=== PATIENT | female | born 1960 | race Hispanic/Latino ===

== ENCOUNTER → 2018-09-12 | Outpatient (RCR) | payer BC | LOC: PT 09-06 16:47 | PROVIDERS: ATTEND Specialist | DX: M75.41 Impingement syndrome of right shoulder (principal); M25.511 Pain in right shoulder; M25.611 Stiffness of right shoulder, not elsewhere classified; M62.81 Muscle weakness (generalized) ==

== ENCOUNTER → 2019-11-06 | Day surgery (SDC) | payer BC, OTHER ==
[2019-11-02 14:59] LABS: BASOPHILS % 0.5 % (0.0-1.0); EOSINOPHILS # (AUTO) 0.1 (0.0-0.4); EOSINOPHILS % 1.3 % (0.0-6.0); HEMATOCRIT 42.7 % (34.2-44.1); HEMOGLOBIN 14.4 g/dL (12.0-16.0); LYMPHOCYTES # (AUTO) 3.2 (1.0-3.2); MEAN CORPUSCULAR HEMOGLOBIN 31.1 pg (28-32); MEAN CORPUSCULAR HGB CONC 33.7 g/dL (31-35); MEAN CORPUSCULAR VOLUME 92.2 fL (81-99); MONOCYTES # (AUTO) 0.7 (0.2-0.8); NEUTROPHILS # (AUTO) 4.4 (2.1-6.9); NEUTROPHILS % 51.8 % (38.7-80.0); PLATELET COUNT 224 x10e3/uL (140-360); RED BLOOD COUNT 4.63 x10e6/uL (3.6-5.1); RED CELL DISTRIBUTION WIDTH 13.2 % (11.7-14.4)
[2019-11-02 16:20] LABS: ALANINE AMINOTRANSFERASE 19 IU/L (0-55); ALBUMIN 3.7 g/dL (3.5-5.0); ALBUMIN/GLOBULIN RATIO 1.1 (0.8-2.0); ALKALINE PHOSPHATASE 94 IU/L (40-150); ANION GAP 11.7 mmol/L (8-16); BLOOD UREA NITROGEN 12 mg/dL (7-26); BUN/CREATININE RATIO 18 (6-25); CALCIUM 9.7 mg/dL (8.4-10.2); CARBON DIOXIDE 28 mmol/L (22-29); CHLORIDE 103 mmol/L (98-107); CREATININE, SERUM 0.67 mg/dL (0.57-1.11); EST GLOMERULAR FILTRATION RATE > 60 ML/MIN (60-); POTASSIUM 3.7 mmol/L (3.5-5.1); SODIUM 139 mmol/L (136-145)
[2019-11-02 17:12] LABS: GLUCOSE 131 mg/dL (74-118)
[~2019-11-06] MED LIST: ACETAMINOPHEN 1000 MG/100 ML IV ONE; ALENDRONATE SOD70 MG PO; BUPIVACAINE 0.25%/EPI 30ML SDV INJ ONE; CALCET TABLET1 EACH PO; DEXAMETHASONE SOD PHOS INJ 4 MG/ML VIAL ONE; FARXIGA10 MG PO; FENTANYL CITRATE/PF 100MCG/2 ML INJ ONE; HYDROMORPHONE 1MG/1ML INJ ONE; LIDOCAINE HCL 1% LOCAL INJ 20 ML VIAL ONE; LIPITOR10 MG PO; LISINOPRIL2.5 MG PO; METFORMIN HCL500 MG PO; MIDAZOLAM HCL 2 MG/2 ML VIAL ONE; OMEGA 3 1,0001 EACH PO; ONDANSETRON HCL INJ 2MG/ML 2ML 2 MG/ML VIAL ONE; PROPOFOL IV EMULSION 10 MG/ML 20 ML VIAL ONE; ROCURONIUM BROMIDE 10 MG/ML 5ML VIAL IV ONE; SEVOFLURANE INHAL SOLN 250 ML PEN BTL ONE; TRULICITY1.5 MG/0.5 INJ; XYZAL5 MG PO
--- NOTE | 2019-11-06 14:32 | Operative Report ---
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 OPERATION PERFORMED: Left partial mastectomy with preoperative ultrasound-guided needle localization and intraoperative specimen mammography. DELI ASSOCIATE: JOSELUIS Laird. ANESTHESIA: General. COMPLICATIONS: None. ESTIMATED BLOOD LOSS: Minimal. DESCRIPTION OF PROCEDURE: With the patient lying in bed in the supine position under good general anesthesia, after having undergone a needle localization of the area in question, the upper inner quadrant of the left breast, the left breast was prepped and draped in the usual manner. The area around the wire was then infiltrated with 0.25% Marcaine with epinephrine. An incision was made and carried down through the subcutaneous tissue. The wire was identified in the subcutaneous tissue and the breast tissue, and then followed to the area in question. The area in question was then slowly and completely excised. There was a secondary area of some calcifications, which were included in the specimen. The specimen was then sent for specimen mammography, which confirmed the area in question was totally and completely removed. The whole area was then thoroughly irrigated. Perfect hemostasis was ascertained. The specimen was sent for pathology and the breast tissue was then reapproximated with interrupted sutures of 2-0 chromic and the skin was closed with subcuticular 5-0 Vicryl. Benzoin, Steri-Strips, and dressings were applied. The sponge, lap, and needle count was correct. The patient tolerated the procedure well and returned to the recovery room in stable condition. Esau Crisostomo MD JLR/MODL /[id number]
[2019-11-06 14:40] VITALS: BP 129/81
--- NOTE | 2019-11-07 08:52 | Diagnostic Imaging Report ---
#[id number] - [id number] WIRE LOCALIZATION LEFT BREAST WITH POST MAMMOGRAPHIC IMAGIN11/06/2019 Correlation is made to exams dated: 10/04/2019 stereotactic biopsy, 10/02/2019 mammogram and 08/02/2019 mammogram - [facility]. A wire localization was performed for the marker clip located in the left breast at 12 o'clock posterior depth. The skin was prepped in the usual manner. A J-hook wire was inserted into the targeted area. Post placement mammographic imaging was obtained. IMPRESSION: WIRE LOCALIZATION Wire localization for the marker clip in the left breast at 12 o'clock posterior depth was successful with no apparent post procedure complications. Waiting for pathology results. A final report will be issued when these become available. Follow-up with ACR/ACS guidelines. MARLON carvajal/nazanin:11/06/2019 15:27:06 Director Process Improvement: Ginette RAY)(Lynn), [facility] [id number]
--- NOTE | 2019-11-08 13:10 | Diagnostic Imaging Report ---
#[id number] - BRSPECLT SPECIMEN: 11/06/2019 Correlation is made to exam dated: 11/06/2019 localization - [facility]. Specimen radiograph from excisional biopsy of the left breast is performed. The specimen contains the localization wire, marker clip target, and several calcifications. IMPRESSION: SPECIMEN Specimen radiograph from excisional biopsy of the left breast is performed. The specimen contains the localization wire, marker clip target, and several calcifications. Follow-up with ACR/ACS guidelines. MARLON LAMA M.D. kw/:11/08/2019 11:39:00 Building Maintenance Repairer: Ginette GAINES(Vincent)(M), [facility]
== END | disposition home or self-care (01) ==
LOC: MAMMO 11:23
PROVIDERS: ATTEND Surgery
DX: D05.12 Intraductal carcinoma in situ of left breast (principal); E11.9 Type 2 diabetes mellitus without complications; I10 Essential (primary) hypertension; Z91.041 Radiographic dye allergy status; Z01.810 Encounter for preprocedural cardiovascular examination; Z01.812 Encounter for preprocedural laboratory examination; Z11.59 Encounter for screening for other viral diseases; Z79.84 Long term (current) use of oral hypoglycemic drugs
CPT/HCPCS: 36415; 80053; 82948; 85025; 87635; 88307; 93005; J1100; J1170; J2001; J2250; J2405; J3010

== ENCOUNTER 2020-01-15 05:42 | Observation (INO) | payer BC, OTHER ==
[2020-01-07 11:23] LABS: BASOPHILS # (AUTO) 0.1 (0.0-0.1); BASOPHILS % 0.6 % (0.0-1.0); EOSINOPHILS # (AUTO) 0.1 (0.0-0.4); EOSINOPHILS % 0.7 % (0.0-6.0); HEMATOCRIT 43.7 % (34.2-44.1); HEMOGLOBIN 14.4 g/dL (12.0-16.0); LYMPHOCYTES # (AUTO) 2.6 (1.0-3.2); LYMPHOCYTES % 30.6 % (18.0-39.1); MEAN CORPUSCULAR HEMOGLOBIN 30.8 pg (28-32); MEAN CORPUSCULAR VOLUME 93.6 fL (81-99); MONOCYTES # (AUTO) 0.6 (0.2-0.8); MONOCYTES % 7.2 % (4.4-11.3); NEUTROPHILS # (AUTO) 5.2 (2.1-6.9); NEUTROPHILS % 60.4 % (38.7-80.0); PLATELET COUNT 217 x10e3/uL (140-360); RED BLOOD COUNT 4.67 x10e6/uL (3.6-5.1); RED CELL DISTRIBUTION WIDTH 13.3 % (11.7-14.4)
[2020-01-07 11:42] LABS: ALANINE AMINOTRANSFERASE 19 IU/L (0-55); ALBUMIN 3.8 g/dL (3.5-5.0); ALBUMIN/GLOBULIN RATIO 1.1 (0.8-2.0); ALKALINE PHOSPHATASE 74 IU/L (40-150); ANION GAP 15.8 mmol/L (8-16); BLOOD UREA NITROGEN 10 mg/dL (7-26); BUN/CREATININE RATIO 18 (6-25); CALCIUM 8.9 mg/dL (8.4-10.2); CARBON DIOXIDE 24 mmol/L (22-29); CHLORIDE 107 mmol/L (98-107); CREATININE, SERUM 0.55 mg/dL (0.57-1.11); EST GLOMERULAR FILTRATION RATE > 60 ML/MIN (60-); GLUCOSE 123 mg/dL (74-118); POTASSIUM 3.8 mmol/L (3.5-5.1); SODIUM 143 mmol/L (136-145)
[~2020-01-15] VITALS: Ht 149.9 cm; Wt 88.9 kg
[~2020-01-15 05:42] MED LIST changes: -ACETAMINOPHEN 1000 MG/100 ML IV ONE; -BUPIVACAINE 0.25%/EPI 30ML SDV INJ ONE; -DEXAMETHASONE SOD PHOS INJ 4 MG/ML VIAL ONE; -FENTANYL CITRATE/PF 100MCG/2 ML INJ ONE; -HYDROMORPHONE 1MG/1ML INJ ONE; -LIDOCAINE HCL 1% LOCAL INJ 20 ML VIAL ONE; -MIDAZOLAM HCL 2 MG/2 ML VIAL ONE; -ONDANSETRON HCL INJ 2MG/ML 2ML 2 MG/ML VIAL ONE; -PROPOFOL IV EMULSION 10 MG/ML 20 ML VIAL ONE; -ROCURONIUM BROMIDE 10 MG/ML 5ML VIAL IV ONE; -SEVOFLURANE INHAL SOLN 250 ML PEN BTL ONE
[2020-01-15] MEDS ORDERED: CEFAZOLIN SOD 1 GM/NS 50ML 50 ML IV ONE (06:32)
[2020-01-15] MEDS ORDERED: GENTAMICIN SULFATE 40 MG/ML 2 ML VIAL ONE (09:05)
[2020-01-15] MEDS ORDERED: CEFAZOLIN SOD 1 GM VIAL ONE (09:05)
[2020-01-15] MEDS ORDERED: MUPIROCIN 2% OINT 22 GM TUBE ONE (09:09)
[2020-01-15] MEDS ORDERED: ACETAMINOPHEN 1000 MG/100 ML IV PRN (09:45)
[2020-01-15] MEDS ORDERED: HYDROMORPHONE 1MG/1ML INJ IV PRN (09:45)
[2020-01-15] MEDS ORDERED: ONDANSETRON HCL INJ 2MG/ML 2ML 2 MG/ML VIAL IV PRN (09:45)
--- NOTE | 2020-01-15 11:06 | Operative Report ---
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 OPERATION PERFORMED: Left total mastectomy. ANESTHESIA: General. COMPLICATIONS: None. ESTIMATED BLOOD LOSS: 100 mL. DESCRIPTION OF PROCEDURE: With the patient lying in bed in the supine position under good general anesthesia. The chest was prepped with Betadine solution and draped in the usual manner. An elliptical incision was made to include the left nipple areolar complex. Incision was deepened into the subcutaneous tissue and flaps were then developed in all directions. We preserved as much of the skin that was possible for the subsequent reconstruction the patient will still undergo. The flaps were then developed at the fascial level all the way around with the borders being medially the sternum, superiorly the clavicle, laterally the latissimus, and inferiorly the rectus fascia, and the breast was then slowly and carefully swung off the pectoralis major muscle, and hemostasis was ascertained. The lateral border of the pectoralis major muscle was then dissected and the breast was totally and completely taken off the chest wall and properly labeled, and sent for pathological examination. After this was done, the whole area was thoroughly irrigated. Perfect hemostasis was ascertained and the patient was then turned over to Dr. Arriaga for reconstruction. Esau Cirsostomo MD JLR/MODL /[id number]
[2020-01-15] MEDS ORDERED: FENTANYL CITRATE/PF 100MCG/2 ML INJ ONE ×2 (11:48→17:38)
[2020-01-15] MEDS: INSULIN REGULAR, HUMAN 100 UNIT/1 ML 3ML VIAL SQ SCH ×2 (12:00→18:00)
--- OUTSIDE RECORDS SUMMARY | 2020-01-15 12:21 | XMS REPORT | Continuity of Care Document ---
Author Author [facility] t Organization [facility] Address [address] [place] [address] Phone Unavailable Care Team Providers Care Marble Mason Name Role Phone KETAN CROUCH MD PCP Beth STANLEY Attphys Unavailable Payers Payer Name Policy Type Policy Number Effective Date Expiration Date S [place] [facility] [id number] [facility] Problems This patient has no known problems. Allergies, Adverse Reactions, Alerts Allergy Name Allergy Type Status Severity Reaction(s) Onset Date Inacti ve Date Treating Clinician Comments Source iodine DA Active U 2017-11-01 00:00:00 [facility] penicillin G DA Active U 2017-11-01 00:00:00 [facility] Iodine Allergy to Substance Active 2011-08-19 00:00:00 [facility] Medications This patient has no known medications. Procedures This patient has no known procedures. Encounters Start Date/Time End Date/Time Encounter Type Admission Type [facility] Care Department Encounter ID Source 2018-09-12 14:48:00 2018-09-12 23:59:00 Discharged Recurring [facility] [id number] [facility] Results Test Description Test Time Test Comments Results Result Comments Source BREAST SPECIMEN LT RADIOGRAPH 2019-11-06 13:25:00 [facility] [address] [place], [place] [address] Patient Name: SCOT LEON MR #: [id number] : 1960 Age/Sex: 59/F Req #: [id number] Adm Physician: Ordered by: SIVA STANLEY MD Report #: [id number] Location: MAMMO Room/Bed: Procedure: [id number] MG/BREAST SPECIMEN LT RADIOGRAPH Exam Date: 11/06/19 Exam Time: 1316 REPORT STATUS: Signed THIS REPORT HAS BEEN AMENDED. #[id number] - BRSPECLT SPECIMEN: 11/06/2019 Correlation is made to exam dated: 11/06/2019 localization - [facility]. Specimen radiograph from excisional biopsy of the left breast is performed. The specimen contains the localization wire, marker clip target, and several calcifications. IMPRESSION: SPECIMEN Specimen radiograph from excisional biopsy of the left breast is performed. The specimen contains the localization wire, marker clip target, and several calcifications. Follow- up with ACR/ACS guidelines. MARLON LAMA M.D. kw/:11/08/2019 11:39:00 Ice Guard Inspector: Ginette GAINES(Vincent)(Lynn), [facility] AMENDMENT: 12/14/2019 MARLON LAMA M.D. Pathology report from the biopsy has become available. The report indicates: Ductal carcinoma in situ (DCIS). This is concordant with imaging findings. Please refer to the full report, or consult the hospital pathologist, for additional details. Dictated By: MARLON LAMA MD [id number] Transcribed By: NAZANIN on 12/14/19 1348 COPY TO: SIVA STANLEY MD PERQ DEVICE BRST 1ST IMAG-LT 2019-11-06 11:48:[address] [place] [address] Patient Name: SCOT LEON MR #: [id number] : 1960 Age/Sex: 59/F Req #: [id number] [facility] Physician: Ordered by: SIVA STANLEY MD Report #: [id number] Location: MAMMO Room/Bed: Procedure: [id number] MG/PERQ DEVICE BRST 1ST IMAG-LT Exam Date: Exam Time: REPORT STATUS: Signed #[id number] - [id number] WIRE LOCALIZATION LEFT BREAST WITH POST MAMMOGRAPHIC IMAGIN11/06/2019 Correlation is made to exams dated: 10/04/2019 stereotactic biopsy, 10/02/2019 mammogram and 08/02/2019 mammogram - [facility]. A wire localization was performed for the marker clip located in the left breast at 12 o'clock posterior depth. The skin was prepped in the usual manner. A J-hook wire was inserted into the targeted area. Post placement mammographic imaging was obtained. IMPRESSION: WIRE LOCALIZATION Wire localization for the marker clip in the left breast at 12 o'clock posterior depth was successful with no apparent post procedure complications. Waiting for pathology results. A final report will be issued when these become available. Follow-up with ACR/ACS guidelines. MARLON carvajal/nazanin:11/06/2019 15:27:06 Ice Guard Inspector: Ginette RAY)(M), [facility] [id number] Dictated By: MARLON LAMA MD 152 Transcribed By: NAZANIN on 11/06/191526 COPY TO: SIVA STANLEY MD BREAST STEREO CORE BIOPSY LEFT 2019-10-10 15:39:09 - BREAST STEREO CORE BIOPSY LEFTSTEREOTACTIC GUIDED BIOPSY LEFT BREAST: 10/04/2019CLINICAL: Stereotactic biopsy, left breast. Comparison is made to exam dated 10/02/2019 mammogram - [facility]. A stereotactic guided biopsy was performed for the area of calcifications located in the left breast at 11 o'clock, posterior depth. The skin was prepped in the usual manner. A biopsy needle was placed adjacent to the abnormality under computer guidance and confirmatory stereotactic mammography images were obtained to document needle placement. Once the needle was documented to be in the correct location, a specimen was obtained using an automated biopsy gun. The specimen was sent to the laboratory for pathological analysis. There is an "M" marker clip in the appropriate position in the breast at 11 o'clock. This marker clip placement is at biopsy site.IMPRESSION: STEREOTACTIC GUIDED BIOPSYStereotactic guided biopsy of the area of calcifications in the left breast at 11 o'clock, posterior depth, was performed. There was successful marker clip placement in the breast.Final Pathology:Columnar cell alterations with atypia at threshold for low-grade ductal carcinoma in situ, DCIS with luminal calcifications. Foci of atypical lobular hyperplasia. Proliferative breast changes with ductal epithelial hyperplasia, variable fibrosis and columnar cell change.Recommendation:Malignant biopsy, concordant. Surgical consultation for further management and complete excision is recommended at this time.Rashaad Holland M.D.n,ss/:10/10/2019 15:39:09 Entry: - 10/10/2019 15:41:52Imaging Technologist: Haley Phan , [facility] BREAST STEREO CORE BIOPSY LEFT 2019-10-10 15:39:09 - BREAST STEREO CORE BIOPSY LEFTSTEREOTACTIC GUIDED BIOPSY LEFT BREAST: 10/04/2019CLINICAL: Stereotactic biopsy, left breast. Comparison is made to exam dated 10/02/2019 mammogram - [facility]. A stereotactic guided biopsy was performed for the area of calcifications located in the left breast at 11 o'clock, posterior depth. The skin was prepped in the usual manner. A biopsy needle was placed adjacent to the abnormality under computer guidance and confirmatory stereotactic mammography images were obtained to document needle placement. Once the needle was documented to be in the correct location, a specimen was obtained using an automated biopsy gun. The specimen was sent to the laboratory for pathological analysis. There is an "M" marker clip in the appropriate position in the breast at 11 o'clock. This marker clip placement is at biopsy site.IMPRESSION: STEREOTACTIC GUIDED BIOPSYStereotactic guided biopsy of the area of calcifications in the left breast at 11 o'clock, posterior depth, was performed. There was successful marker clip placement in the breast.Final Pathology:Columnar cell alterations with atypia at threshold for low-grade ductal carcinoma in situ, DCIS with luminal calcifications. Foci of atypical lobular hyperplasia. Proliferative breast changes with ductal epithelial hyperplasia, variable fibrosis and columnar cell change.Recommendation:Malignant biopsy, concordant. Surgical consultation for further management and complete excision is recommended at this time.Rashaad Holland M.D.qn,ss/:10/10/2019 15:39:09 Entry: - 10/10/2019 15:41:52Imaging Technologist: Haley Phan [facility]- BREAST ULTRASOUND BILATERAL 2019-10-02 15:17:22 - BREAST ULTRASOUND BILATERALULTRASOUND OF BOTH BREASTS AND BOTH AXILLA: 10/02/2019CLINICAL: Abnormal mammogram. Comparison is made to exam dated 10/02/2019 [facility] Real-time ultrasound of both breasts and both axilla and clinical breast exam were performed. No abnormalities were seen sonographically in either axilla. Benign cysts and dilated ducts were seen bilaterally. No solid masses were seen. IMPRESSION: SUSPICIOUS OF MALIGNANCY - FOLLOW-UP RECOMMENDEDStereotactic biopsy is recommended for the calcifications seen on mammogram at 11 o'clock in the left breast.Le Gay M.D. dm/:10/02/2019 15:17:22 Entry: [facility] 10/02/2019 15:51:07Imaging Technologist: Kelsy Golden [facility]: 4 Suspicious abnormality DIAG MAMM LEFT CAD DIGITAL 2019-10-02 15:15:54 - DIAG MAMM LEFT CAD DIGITALUNILATERAL LEFT DIGITAL DIAGNOSTIC MAMMOGRAM WITH CAD: 10/02/2019CLINICAL: Abnormal Mammogram. Current mammographic images were evaluated by either a Supramed-Vu or a Solexanter CAD (computer aided detection system). Comparison is made to exams dated 08/02/2019 mammogram and 02/11/2017 mammogram - [facility]. There are scattered fibroglandular tissues in the left breast. There are grouped calcifications in the left breast at 11 o'clock that have increased in number. No other significant masses or calcifications are seen in the breast. IMPRESSION: INCOMPLETE: ADDITIONAL IMAGING EVALUATION NEEDEDThe grouped calcifications in the left breast need histological evaluation. A stereotactic biopsy is recommended. Le Gay M.D. dm/:10/02/2019 15:15:54 Entry: - 10/02/2019 15:49:14Imaging Technologist: Makayla MARTIN, [facility]-Mammogram BI-RADS: 0 Incomplete: Additional Imaging Evaluation Needed SCR MAMM BILATERAL ALICIA CAD DIGITAL 2019-08-02 14:06:34 - SCR MAMM BILATERAL ALICIA CAD DIGITALBILATERAL DIGITAL SCREENING MAMMOGRAM 3D/2D WITH CAD: 08/02/2019CLINICAL: Asymptomatic. Digital breast tomosynthesis was performed in addition to routine CC and MLO views. Current mammographic images were evaluated by either a [employer] M-Vu or a [employer] ImageChecker CAD (computer aided detection system). Comparison is made to exams dated 02/11/2017 mammogram - [facility], 03/24/2006 mammogram - [facility], and 07/31/2002 [facility]. There are scattered fibroglandular tissues in both breasts. There are grouped calcifications in the upper, slightly medial left breast, 11 cm from the nipple. There are multiple bilateral benign-appearing oval and round circumscribed masses.No other significant masses, calcifications, or other findings are seen in either breast. IMPRESSION: INCOMPLETE: ADDITIONAL IMAGING EVALUATION NEEDEDThe grouped calcifications in the left breast are indeterminate. Magnification views and po ssible ultrasound are recommended. Antionette urbano/:08/02/2019 14:06:34 Ice Guard Inspector: Nitza MARTIN, [facility]- letter sent: Additional Imaging Mammogram BI-RADS: 0 Incomplete: Additional Imaging Evaluation Needed
[2020-01-15 13:55] VITALS: BP 128/70
[2020-01-15 14:00] VITALS: BP 128/70
[2020-01-15] MEDS ORDERED: PANTOPRAZOLE 40 MG 10ML VIAL IV SCH (14:00)
[2020-01-15] MEDS ORDERED: DEXTROSE 50% SYRINGE 50 ML IV PRN (14:15)
--- NOTE | 2020-01-15 15:23 | Operative Report ---
DATE OF PROCEDURE: 01/15/2020 SURGEON: Devan Arriaga MD PREOPERATIVE DIAGNOSES: 1. Carcinoma, left breast. 2. Acquired absence, left breast. POSTOPERATIVE DIAGNOSES: 1. Carcinoma, left breast. 2. Acquired absence, left breast. PROCEDURES: 1. Left breast reconstruction with implant. 2. Implantation of acellular dermis for soft tissue reinforcement. ANESTHESIA: General. HISTORY: The patient is a 59-year-old female, who was undergoing left mastectomy and wishes to have immediate reconstruction. The risks, benefits, and alternatives of surgery were discussed with the patient and , and she is prepared to undergo the procedure as outlined. PROCEDURE IN DETAIL: The patient was marked preoperatively in the holding area. She was brought to the operating theater by the General Surgery team. At the completion of the General Surgery portion of the procedure, the Plastic Surgical team came into the OR. The patient was under general anesthesia in the supine position, and she had been prepped and draped, and the left chest wound was packed with saline-soaked lap pads. A time-out was performed. Removal of the lap pads revealed the surgical field to be hemostatic. The pectoralis major muscle was exposed and the skin flaps were noted to be of good viability. The procedure was begun by using the electrocautery to release the inferior and the lower 3rd medial attachments of the pectoralis major muscle. The muscle was then released and a cuff of muscle was left inferiorly to maintain the integrity of the inframammary fold. At this point, the pectoralis was elevated off the thoracic structures leaving the pectoralis minor in situ. Once the pectoralis major had been completely elevated, hemostasis was made absolute using the electrocautery. At this point, SurgiMend PRS was prepared per commission specialist's specifications and it was then put into the surgical field. It was secured medially to the sternal border and inferiorly to the inframammary fold using 2-0 PDS in a horizontal interrupted mattress fashion. At this point, the sizers were then used to determine the size of implant needed for the reconstruction. After selecting a variety of sizes in setting the patient and assessing for symmetry, it was noted that a 650 mL implant would be the best match. At this point, the Sizer was removed. The pocket was copiously irrigated with a triple-antibiotic containing solution. At this juncture, the 650 mL implant was prepared per manufacturers specification, placed into the antibiotic soak, and then placed into the pocket. The inferior border of the pectoralis major was then sutured to the superior border of the acellular dermis using 2-0 PDS in an interrupted horizontal mattress fashion. In order to keep the implant as medial and inferior as possible, the lateral border of the acellular dermis and the pectoralis major were then sutured to the soft tissues on the lateral chest wall in an interrupted fashion. After completing this maneuver, the implant was noted to lie medial and inferior within the pocket. The pocket was irrigated with antibiotic containing solution once again. A 15-Kazakh VALE drain was then placed percutaneously through the axilla into the left chest area; it was secured to the skin using 3-0 nylon. At this juncture, the redundant skin and subcutaneous tissues of the left chest wall were marked out and they were excised sharply. The wound edges made hemostatic using electrocautery. At this point, the mastectomy wound was closed using 3-0 Monocryl in an interrupted buried fashion followed by 4-0 Monocryl running subcuticular stitch. Steri-Strips were applied to the incision. Dressings were applied over the drain exit site as well as the Steri-Strips, and then copious amounts of padding were placed onto the left chest wall and axilla, and held in place with a 6-inch Sergei wrap. The patient tolerated the procedure well and was brought to recovery room in satisfactory condition. The estimated blood loss for this portion of the procedure was between 100 and 125 mL. She will then be admitted for overnight observation. MD ANNEMARIE Baez/DEEPL /[id number]
[2020-01-15] MEDS: SODIUM CHLORIDE 0.9% 1000ML 1,000 ML IV SCH ×2 (15:44→19:45)
[2020-01-15] MEDS: METFORMIN HCL 500 MG TAB PO SCH (16:56)
[2020-01-15] MEDS: CEFAZOLIN SOD 1 GM/NS 50ML 50 ML IV SCH (16:56)
[2020-01-15] MEDS ORDERED: MIDAZOLAM HCL 2 MG/2 ML VIAL ONE (17:38)
[2020-01-15] MEDS ORDERED: SEVOFLURANE INHAL SOLN 250 ML PEN BTL ONE (18:34)
[2020-01-15] MEDS ORDERED: DEXAMETHASONE SOD PHOS INJ 4 MG/ML VIAL ONE (18:34)
[2020-01-15] MEDS ORDERED: ONDANSETRON HCL INJ 2MG/ML 2ML 2 MG/ML VIAL ONE (18:34)
[2020-01-15] MEDS ORDERED: KETOROLAC TROMETHAMINE 30 MG/ML VIAL ONE (18:34)
[2020-01-15] MEDS ORDERED: PROPOFOL IV EMULSION 10 MG/ML 20 ML VIAL ONE (18:34)
[2020-01-15] MEDS ORDERED: LIDOCAINE HCL 2% LOCAL INJ 5 ML SDV VIAL INJ ONE (18:34)
[2020-01-15] MEDS ORDERED: ROCURONIUM BROMIDE 10 MG/ML 5ML VIAL IV ONE (18:34)
--- NOTE | 2020-01-15 19:35 | NUR ---
BEDSIDE SHIFT REPORT RECEIVED FROM DAY RN. PT IS ALERT AND ORIENTED X3. LEFT DRESSING TO LEFT ARM DRY AND INTACT. VALE DRAIN CHARGED DRAINING SEROUS SANGUINOUS DRAINAGE. RESPIRATIONS ARE EVEN AND UNLABORED. 20 G RT AC PIN NS INFUSING AT 100 ML/HR. SITE HEALTHY. PT AMBULATE TO BATHROOM WITH WALKER AND ONE ASSIST. PT VOIDING WITHOUT DIFFICULTY.CALL LIGHT WITHIN REACH. BED LOCKED AND IN LOW POSITION.
[2020-01-15 20:00] VITALS: BP 101/56
[2020-01-15] MEDS: HYDROCODONE/APAP 7.5MG-325MG 1 EA TAB PO PRN (22:14)
[2020-01-16] VITALS: BP 107/59
[2020-01-16] MEDS: CEFAZOLIN SOD 1 GM/NS 50ML 50 ML IV SCH (00:30)
[2020-01-16] MEDS: SODIUM CHLORIDE 0.9% 1000ML 1,000 ML IV SCH (04:20)
[2020-01-16] MEDS: HYDROCODONE/APAP 7.5MG-325MG 1 EA TAB PO PRN (05:45)
[2020-01-16 06:00] LABS: BASOPHILS % 0.2 % (0.0-1.0); EOSINOPHILS % 0.2 % (0.0-6.0); HEMATOCRIT 36.8 % (34.2-44.1); HEMOGLOBIN 12.1 g/dL (12.0-16.0); LYMPHOCYTES # (AUTO) 2.3 (1.0-3.2); LYMPHOCYTES % 17.4 % (18.0-39.1); MEAN CORPUSCULAR HEMOGLOBIN 30.6 pg (28-32); MEAN CORPUSCULAR HGB CONC 32.9 g/dL (31-35); MEAN CORPUSCULAR VOLUME 93.2 fL (81-99); MONOCYTES # (AUTO) 1.4 (0.2-0.8); MONOCYTES % 10.4 % (4.4-11.3); NEUTROPHILS # (AUTO) 9.3 (2.1-6.9); NEUTROPHILS % 71.2 % (38.7-80.0); PLATELET COUNT 204 x10e3/uL (140-360); RED BLOOD COUNT 3.95 x10e6/uL (3.6-5.1)
[2020-01-16] MEDS: INSULIN REGULAR, HUMAN 100 UNIT/1 ML 3ML VIAL SQ SCH ×2 (06:00)
[2020-01-16 06:04] VITALS: BP 127/64
[2020-01-16 06:18] LABS: ANION GAP 14.9 mmol/L (8-16); BLOOD UREA NITROGEN 12 mg/dL (7-26); BUN/CREATININE RATIO 21 (6-25); CALCIUM 7.7 mg/dL (8.4-10.2); CARBON DIOXIDE 20 mmol/L (22-29); CHLORIDE 110 mmol/L (98-107); CREATININE, SERUM 0.57 mg/dL (0.57-1.11); EST GLOMERULAR FILTRATION RATE > 60 ML/MIN (60-); GLUCOSE 132 mg/dL (74-118); POTASSIUM 3.9 mmol/L (3.5-5.1); SODIUM 141 mmol/L (136-145)
[2020-01-16] MEDS ORDERED: KEFLEX500 MG PO (07:44)
[2020-01-16] MEDS ORDERED: NORCO 5-325 TA1 EACH PO (07:46)
[2020-01-16 08:17] VITALS: BP 143/81
[2020-01-16] MEDS: METFORMIN HCL 500 MG TAB PO SCH (08:47)
[2020-01-16] MEDS ORDERED: LISINOPRIL 2.5 MG TAB PO SCH (09:00)
[2020-01-16 09:15] VITALS: BP 143/81
--- NOTE | 2020-01-16 11:20 | NUR ---
Discharge education provided with spouse at bedside emphasizing the need to follow-up appointment with Dr. Arriaga next week. Reinforced teaching regarding VALE drain with spouse. Verbalized understanding. Discharge packet provided. PIV to right AC removed, catheter tip intact, no bleeding noted. Transported patient via wheelchair to private vehicle with all personal belongings taken.
== END 2020-01-16 11:21 | disposition home or self-care (01) ==
LOC: OR 05:42 → PACU V 09:42 → MED/SURG 14:05
PROVIDERS: ADMIT Surgery; ATTEND Surgery
DX: C50.812 Malignant neoplasm of overlapping sites of left female breast (principal); Z11.59 Encounter for screening for other viral diseases; E11.9 Type 2 diabetes mellitus without complications; K21.9 Gastro-esophageal reflux disease without esophagitis; Z01.812 Encounter for preprocedural laboratory examination
CPT/HCPCS: 19306; 19340; 36415 ×3; 80048; 80053; 82948 ×2; 85025 ×2; 88307; C9113; G0378 ×2; J0690 ×3; J1100; J1580; J1885; J2001; J2250; J2405; J2704; J3010; J7030 ×2; U0002 ×2; 88309